=== PATIENT | male | born 1970 | race Caucasian/White ===

== ENCOUNTER 2018-11-26 10:08 | Emergency (ER) | payer MEDICAID, MEDICARE, OTHER ==
[~2018-11-26] VITALS: Ht 175.3 cm; Wt 74.0 kg
--- NOTE | 2018-11-26 10:30 | NUR ---
PT IN ROOM IN GOWN. PT ON O2 AND NIBP MONITORING. PT SPEAKING IN FULL SENTENCES, AMBULATES WITH A STEADY GAIT. PT IS DIFFICULT TO KEEP FOCUSED ON ASSESSMENT QUESTIONS. PT WILL TRAIL OFF INTO TELLING STORIES. MULTIPLE ATTEMPTS TO REDIRECT PT. PT AXOX3 AND DENIES ANY OTHER SYMPTOMS THAN THE HEADACHE/ NECK PAIN FOR 3 DAYS.
--- NOTE | 2018-11-26 11:07 | NUR ---
PT TO CT NOW
[2018-11-26 11:59] VITALS: BP 126/80
--- NOTE | 2018-11-26 12:00 | NUR ---
IN ROOM WITH PT. PT RESTING IN BED AT THIS TIME. PT STARTLED TO VOICE.
[2018-11-26] MEDS ORDERED: OXYcodone/APAP 10/325MG TABLET ONE (12:02)
[2018-11-26] MEDS ORDERED: KETOROLAC 30 MG/1 ML ONE (12:02)
[2018-11-26] MEDS ORDERED: ONDANSETRON ODT 4 MG ONE (12:11)
[2018-11-26] MEDS ORDERED: OXYcodone/APAP 10/325MG TABLET PO ONE (12:30)
[2018-11-26] MEDS ORDERED: PLEASE ENTER ALLERGIES MC SCH (12:30)
[2018-11-26] MEDS ORDERED: ONDANSETRON ODT 4 MG PO ONE (12:30)
[2018-11-26] MEDS ORDERED: KETOROLAC 30 MG/1 ML IVPush ONE (12:30)
== END 2018-11-26 12:18 | disposition home or self-care (01) ==
LOC: ED 10:27
DX: R51 Headache (principal); R53.1 Weakness; H53.8 Other visual disturbances; F31.9 Bipolar disorder, unspecified; F17.200 Nicotine dependence, unspecified, uncomplicated
CPT/HCPCS: 70450; 96374; 99284; J1885; Q0162